=== PATIENT | male | born 1950 | race Caucasian/White ===

== ENCOUNTER → 2016-11-18 | Outpatient (CLI) | payer OTHER ==
--- NOTE | 2016-11-21 15:02 | SLEEPCENT ---
DATE OF PROCEDURE: 11/18/2016 REFERRING PHYSICIAN: Cecily Jimenez Nocturnal polysomnography was performed due to concern for the obstructive sleep apnea syndrome in this patient with a history of excessive somnolence, morning headaches, and nonrestorative sleep. 7 hours of data were reviewed. There were 294 minutes of sleep identified. Sleep latency was prolonged at 27 minutes. Rapid eye movement (REM) latency was short at 43 minutes. Sleep architecture initially showed severe fragmentation. Improvement was seen after interventions were made. Overall sleep efficiency was 70%. The patient's EKG showed a sinus rhythm with an average heart rate of 62 beats per minute. Premature ventricular contractions were seen. EEG showed normal waveforms for awake and sleep. There were 119 respiratory events identified of 10 seconds in duration or greater for an apnea-hypopnea index of 24.2. The events were primarily obstructive and associated with oxygen desaturations into the low 80s. Having clearly established the presence of obstructive sleep apnea syndrome, testing was stopped for the application of pressure therapy. The patient was fit with a [employer]Med Quattro full face mask of medium size, 5 cm of water pressure were initially applied to the circuit, and the lights were extinguished. Throughout the remaining course of testing, pressure titration was performed to an optimal pressure of +10, with which the patient slept through REM, indeed, and displayed REM rebound. Some limb activity was appreciated, but limb movement arousals were less after pressure therapy and the index was 4.3. IMPRESSION: Moderate to severe obstructive sleep apnea syndrome (G47.33). Apnea-hypopnea index 24.2. RECOMMENDATION: Nightly use of pressure therapy, 10 cm of water.
== END ==
LOC: M SLEEP 19:43
PROVIDERS: ATTEND Nurse Practitioner Adult Health
DX: G47.30 Sleep apnea, unspecified (principal)

== ENCOUNTER → 2017-01-24 | Outpatient (CLI) | payer OTHER ==
[~2017-01-24] MED LIST: ISOVUE-370 76% 100ML VIAL (Q9967) As Ordered ONE
--- NOTE | 2017-01-24 10:27 | REP ---
CT abdomen without and with IV contrast: Without oral contrast. History: Acquired bilateral renal cysts. No comparison imaging available. CT contrast dose: 100 ml of Isovue 370 is administered intravenously. Pre- and multiphase postcontrast imaging is acquired. 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 Lung bases are clear. There is a calcified granuloma in the lingula at the left base. There are granulomatous lymph node calcifications consistent with old granulomatous disease in the inferior hilar region as well as in the periesophageal lymph nodes just above the gastroesophageal junction. The liver and the spleen are normal in size, homogeneous in texture. No adrenal lesion is seen on either side. Gallbladder small and contracted. No pancreatic abnormality is seen. Normal caliber aorta is seen with some mild calcification. Small and large intestinal bowel loops are unremarkable. There is a tiny ventral hernia in the supraumbilical anterior abdominal wall transmitting a small quantity of omental fat. No retroperitoneal mass or adenopathy is seen. There are multiple bilateral simple renal cysts. There is also a complex cyst in the mid polar region posteriorly in the left kidney. This measures 6.9 x 5.9 x 7.0 cm. Along its posterior wall, there is a focus of cyst wall calcification. There is no evidence of contrast enhancement. The other renal cysts are simple by CT criteria. They range in size from less than a centimeter to a left upper pole cyst which measures 5.7 cm in greatest diameter. No hydronephrosis is seen. No renal mass lesion is observed. No filling defect is seen in the upper tract collecting systems on either side on delayed scan images. No bony destructive lesion is seen. Impression: Multiple bilateral renal cysts. These are all simple except for one complex Bosniak class II cyst in the left kidney containing a small focal cyst wall calcification. Signed by Reji Camara MD 01/24/2017 12:50 P
== END ==
LOC: M RAD 09:07
PROVIDERS: ATTEND Urology
DX: N28.1 Cyst of kidney, acquired (principal)

== ENCOUNTER 2021-01-07 14:24 | Emergency (ER) | payer MEDICARE, OTHER ==
[~2021-01-07] VITALS: Ht 175.3 cm; Wt 117.6 kg
[2021-01-07 14:25] VITALS: BP 124/72
[2021-01-07 15:58] LABS: BASO # 0.1 10^3/uL (0.0-0.2); BASO % 0.5 % (0.0-1.0); EOS # 0.3 10^3/uL (0.0-0.5); EOS % 1.3 % (0.0-3.0); HEMATOCRIT 44.9 % (42.0-52.0); HEMOGLOBIN 15.4 g/dl (13.5-17.5); LYMPH # 1.6 10^3/uL (1.5-5.0); MEAN CORPUSCULAR HEMOGLOBIN 32.2 pg (27.0-33.0); MEAN CORPUSCULAR HGB CONC 34.3 g/dl (32.0-36.5); MEAN CORPUSCULAR VOLUME 93.9 fl (80.0-96.0); MONO # 1.3 10^3/uL (0.0-0.8); MONO % 6.2 % (2.0-8.0); NEUTROPHILS % 83.1 % (36.0-66.0); PLATELET COUNT, AUTOMATED 259 10^3/uL (150-450); RED BLOOD COUNT 4.78 10^6/uL (4.30-6.10); WHITE BLOOD COUNT 20.4 10^3/uL (4.0-10.0)
[2021-01-07 16:21] LABS: ALBUMIN 3.5 GM/DL (3.2-5.2); BILIRUBIN,DIRECT 0.2 MG/DL (0.0-0.2); BILIRUBIN,TOTAL 0.6 MG/DL (0.2-1.0); TOTAL PROTEIN 7.1 GM/DL (6.4-8.2)
[2021-01-07] MEDS ORDERED: NS 1,000 ML IV ONE (16:35)
[2021-01-07] MEDS ORDERED: POTASSIUM CHLORIDE 10 MEQ SR TABLET PO ONE (17:30)
[2021-01-07] MEDS ORDERED: FIDA200TA PO (17:54)
== END 2021-01-07 19:04 | disposition home or self-care (01) ==
LOC: M ED 14:24
DX: E87.6 Hypokalemia (principal); A04.72 Enterocolitis due to Clostridium difficile, not specified as recurrent

== ENCOUNTER → 2022-02-13 | Outpatient (CLI) | payer MEDICARE, OTHER ==
[~2022-02-13] MED LIST changes: +FIDA200TA PO; -ISOVUE-370 76% 100ML VIAL (Q9967) As Ordered ONE
== END ==
LOC: M RAD 09:00
PROVIDERS: ATTEND Orthopaedic Surgery
DX: M48.061 Spinal stenosis, lumbar region without neurogenic claudication (principal); M51.36 Other intervertebral disc degeneration, lumbar region; M51.26 Other intervertebral disc displacement, lumbar region

== ENCOUNTER → 2022-03-04 | Outpatient (CLI) | payer MEDICARE, OTHER | LOC: M LABSMTC 11:33 | PROVIDERS: ATTEND Orthopaedic Surgery | DX: Z01.812 Encounter for preprocedural laboratory examination (principal); M25.511 Pain in right shoulder; M25.512 Pain in left shoulder; Z20.822 Contact with and (suspected) exposure to COVID-19 ==